=== PATIENT | female | born 1965 | race American Indian/Alaskan Native ===

== ENCOUNTER 2018-04-27 00:30 | Emergency (ER) | payer OTHER ==
[2018-04-27] MEDS ORDERED: NACL 0.9% 1000 ML 1,000 ML IV ONE ×2 (00:57→03:45)
[2018-04-27 01:33] LABS: Hematocrit 33.9 % (30.3-42.9); Hemoglobin 11.1 gm/dl (10.1-14.3); Mean Corpuscular HGB Conc 33 % (30-34); Mean Corpuscular Hemoglobin 31 pg (28-32); Mean Corpuscular Volume 95 fl (79-97); Platelet Count 233 K/mm3 (140-440); Red Blood Count 3.56 M/mm3 (3.65-5.03); Red Cell Distribution Width 14.2 % (13.2-15.2)
[2018-04-27 01:39] LABS: Calcium 9.4 mg/dL (8.4-10.2)
[2018-04-27] MEDS ORDERED: NACL 0.9% 50 ML ONE (02:05)
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
[2018-04-27] MEDS ORDERED: NACL 0.9% 500 ML 500 ML IV ONE (04:48)
[2018-04-27 05:01] LABS: Hematocrit 28.8 % (30.3-42.9); Hemoglobin 9.4 gm/dl (10.1-14.3)
[2018-04-27 05:11] LABS: INR 1.17 (0.87-1.13)
[2018-04-27 05:12] LABS: Partial Thromboplastin Time 27.4 Sec. (24.2-36.6)
[2018-04-27 05:42] VITALS: BP 109/54
== END 2018-04-27 06:49 | disposition other institution (70) ==
LOC: ED 00:30
DX: S30.1XXA Contusion of abdominal wall, initial encounter (principal); I10 Essential (primary) hypertension; I25.2 Old myocardial infarction; Z88.8 Allergy status to other drugs, medicaments and biological substances; V49.9XXA Car occupant (driver) (passenger) injured in unspecified traffic accident, initial encounter; Y93.89 Activity, other specified; Y92.410 Unspecified street and highway as the place of occurrence of the external cause; Y99.8 Other external cause status
CPT/HCPCS: 36415; 36430; 70450; 71260; 72125; 74177; 80048; 85014; 85018; 85025; 85610; 85730; 86850; 86900; 86901; 86920; 99291; G0480; J7030; P9016; Q9967; 80320